=== PATIENT | male | born 1950 | race Caucasian/White ===

== ENCOUNTER → 2016-08-02 | Outpatient (CLI) | payer OTHER ==
[~2016-08-02] MED LIST: ACET-1256 PO; ASPCH81X PO; ATOR-24 PO; CHOL1000 PO; CITA20TA4 PO; GLIP-197 PO; HYDR12.55 PO; LEVE100021 PO; LISI10TA PO; LSN/10125 PO; METF-384 PO; NVLGI/PEN SQ; OXYC1TAB3 PO; POLY335019 PO; SENN-65 PO; [UNRECOGNIZED DRUG - CODE] SQ
[2016-08-02 12:25] LABS: BLOOD UREA NITROGEN 19 mg/dl (7-18); BUN/CREATININE RATIO 15.6 (10-20); CALCIUM 8.9 mg/dl (8.5-10.1); CARBON DIOXIDE 26 mmol/L (21-32); CHLORIDE 108 mmol/L (98-107); ESTIMATED AVERAGE GLUCOSE 128 mg/dl; GLUCOSE 61 mg/dl (70-99); HA1C FLAG Normal (Normal); SODIUM 142 mmol/L (136-145)
== END | disposition home or self-care (01) ==
LOC: C.LABPVFM 08:16
PROVIDERS: ATTEND Nurse Practitioner Family
DX: E11.9 Type 2 diabetes mellitus without complications (principal)

== ENCOUNTER 2016-09-02 20:17 | Emergency (ER) | payer OTHER ==
[~2016-09-02] VITALS: Ht 167.6 cm; Wt 94.9 kg
[2016-09-02 20:20] VITALS: O2SAT 95; Ht 167.6 cm; Wt 94.9 kg
[2016-09-02 20:37] LABS: BASO % 0.5 %; BASO ABS # 0.04 K/uL (0-0.2); COMPLETE YES; EOS % 2.3 %; IG% 0.3 %; LYMPH % 23.4 %; LYMPH ABS # 2.06 K/uL (1.2-3.4); MEAN CELL VOLUME 88.8 fL (80-100); MEAN PLATELET VOLUME 10.7 fL (7.4-10.4); MONO % 8.9 %; NEUT % 64.6 %; PLATELET COUNT 167 K/uL (130-400); RED BLOOD COUNT 5.07 M/uL (4.7-6.1)
[2016-09-02 20:41] LABS: ISTAT CREATININE 1.1 mg/dl (0.6-1.3); ISTAT HEMOGLOBIN 15.6 g/dl (14.0-18.0); ISTAT IONIZED CALCIUM 1.18 mmol/l (1.12-1.32)
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
[2016-09-02 20:47] LABS: PARTIAL THROMBOPLASTIN RATIO 0.9; PROTHROMBIN TIME (PATIENT) 10.2 SECONDS (9.0-12.0)
[2016-09-02 20:49] LABS: ALT/SGPT 28 U/L (12-78); AST/SGOT 14 U/L (15-37); BLOOD UREA NITROGEN 19 mg/dl (7-18); BUN/CREATININE RATIO 14.9 (10-20); CALCIUM 9.4 mg/dl (8.5-10.1); CARBON DIOXIDE 28 mmol/L (21-32); CHLORIDE 105 mmol/L (98-107); GLUCOSE 212 mg/dl (70-99); POTASSIUM 3.8 mmol/L (3.5-5.1); SODIUM 141 mmol/L (136-145)
--- NOTE | 2016-09-02 20:49 | DIAGNOSTIC IMAGING REPORT ---
CT SCAN OF THE BRAIN WITHOUT IV CONTRAST CLINICAL HISTORY: Trauma. COMPARISON STUDY: No priors. TECHNIQUE: Unenhanced axial CT scan of the brain is performed from the vertex to the skull base. CT DOSE: 1092.68 mGy.cm FINDINGS: Brain parenchyma: There is a trace subdural hematoma along the right convexity and the anterior falx. This measures up to 5 mm in thickness, and there is minimal effacement of subjacent cortical sulci. There are age-related involutional changes noting minimal subcortical and periventricular microangiopathic change. There is no parenchymal hematoma, midline shift, or evidence of acute territorial ischemia by CT criteria. Plummer-white matter is preserved. No extra-axial fluid collection is seen. Ventricles, sulci, cisterns: Prominent secondary to involutional change. There are foci of intraventricular gas identified, as well as gas within the basilar cisterns. Intracranial vasculature: There is atherosclerotic calcification of the cavernous carotid arteries. Calvarium: No depressed calvarial fracture is identified. Soft tissues: There is a large left frontoparietal scalp hematoma. Foci of subcutaneous gas are consistent with laceration. Sinuses and mastoids: The visualized paranasal sinuses are clear. There is a trace right mastoid effusion. The left mastoid air cells are well pneumatized. Orbits: The bony orbits are grossly intact. IMPRESSION: 1. There is a small subdural hematoma along the right convexity and the anterior falx. This causes only minimal mass effect on the subjacent sulci. 2. No additional foci of hemorrhage are identified. There is no midline shift or evidence of acute territorial ischemia by CT criteria. 3. Large left frontoparietal scalp hematoma and laceration. No depressed calvarial fracture is seen. 4. There are nonspecific foci of gas within the ventricles and basilar cisterns. Clinical correlation will be required. Electronically signed by: Efrain Way M.D. 09/02/2016 8:46 PM Dictated Date/Time: 09/02/2016 8:40 PM
[2016-09-02 20:53] LABS: ALB/GLOB RATIO 1.2 (0.9-2); ALKALINE PHOSPHATASE 101 U/L (45-117)
[2016-09-02] MEDS ORDERED: OPTIRAY 320 IV PRN (21:00)
--- NOTE | 2016-09-02 21:13 | DIAGNOSTIC IMAGING REPORT ---
CT SCAN OF THE CERVICAL SPINE CLINICAL HISTORY: Trauma. COMPARISON STUDY: No priors. TECHNIQUE: CT scan of the cervical spine is performed from the skull base to the upper thoracic spine. Images are reviewed in the axial, sagittal, and coronal planes. IV contrast was not administered for this examination. CT DOSE: Reported separately under the concurrently performed CT scan of the brain. FINDINGS: Skeletal structures: The skeletal structures are well mineralized. There is no evidence of fracture or subluxation involving the cervical spine. Vertebral body height and alignment are maintained. There is partial bony fusion of C2 and C3, including the posterior elements. The odontoid process and lateral masses are intact. The atlantoaxial articulation is preserved noting productive degenerative change. The spinous processes appear intact. There is mild multilevel cervical spondylosis. Uncovertebral and facet arthropathy are noted at most levels. There is chronic posttraumatic deformity of the right clavicle. Intervertebral discs: There is mild degenerative disc space narrowing seen at C5-C6. The remaining disc spaces appear maintained. Central canal: A small posterior disc osteophyte complex at C5-C6 likely contribute to mild acquired compromise of the central canal. There are foci of gas within the central spinal canal. There is hyperdense material present surrounding central canal both anteriorly and posteriorly seen from C2 through C4. The appearance is concerning for epidural hemorrhage. Soft tissues: The prevertebral and paraspinous soft tissues are within normal limits. There is a 10 mm low attenuation nodule in the right thyroid lobe. Subcutaneous gas is present in the left upper neck below the mastoid air cells. There is soft tissue injury and laceration seen in the left neck. A calcified sialolith is present in the left parotid gland. Calvarium: The visualized calvarium at the skull base appears intact. Brain parenchyma: Partially visualized brain parenchyma the skull base is within normal limits. Sinuses and mastoids: The visualized paranasal sinuses are clear. There is a trace right mastoid effusion. The left mastoid air cells are well pneumatized. Lung apices: Clear as visualized. IMPRESSION: 1. There is no evidence of fracture or subluxation involving the cervical spine. 2. There is hyperdense material identified surrounding the central spinal canal in the upper cervical region. The appearance is concerning for epidural hematoma. Consider MRI of the cervical spine for further assessment. 3. There are indeterminant foci of gas within the central spinal canal. This is indeterminant etiology. 4. Soft tissue injury and subcutaneous gas is noted within the left neck. Findings were discussed with Dr. Jha in the emergency department at the time of interpretation. Electronically signed by: Efrain Way M.D. 09/02/2016 9:11 PM Dictated Date/Time: 09/02/2016 8:54 PM
--- NOTE | 2016-09-02 21:21 | DIAGNOSTIC IMAGING REPORT ---
CT SCAN OF THE CHEST, ABDOMEN, AND PELVIS WITH IV CONTRAST CLINICAL HISTORY: Trauma. COMPARISON STUDY: No priors. TECHNIQUE: Following the IV administration of 115 of Optiray 320, CT scan of the chest, abdomen, and pelvis was performed from the thoracic inlet to the proximal femora. Images are reviewed in the axial, sagittal, and coronal planes. IV contrast was administered without complication. Automated dose control exposure was utilized. CT DOSE: 851.78 mGy.cm (accession [id number]), 0.00 mGy.cm (accession [id number]) FINDINGS: CHEST: Thyroid: Imaged portions of the thyroid gland are normal in size and attenuation. A 10 mm low-attenuation nodule is seen in the right lobe. Thoracic aorta: The thoracic aorta is normal in caliber and demonstrates standard 3-vessel arch anatomy. No dissection is seen. Pulmonary vasculature: The pulmonary trunk is normal in caliber. There are no filling defects identified in the central pulmonary vessels to indicate pulmonary was. Note that this examination was not protocoled for evaluation of the pulmonary arteries. Heart: The heart is mildly enlarged and without pericardial effusion. There are coronary artery calcifications. Lungs and pleural spaces: Evaluation of the lung parenchyma is degraded by respiratory motion artifact. There is no airspace consolidation or pleural effusion. Dependent atelectasis is observed. There is no pneumothorax. The trachea and central airways are patent. Mediastinum: There is no mediastinal hematoma or lymphadenopathy. Candice: Clear. Axillae: There is no axillary lymphadenopathy. Bony thorax: There is chronic posttraumatic deformity of the right clavicle. The bony thorax is otherwise intact. Mild degenerative changes noted throughout the thoracic spine and in the shoulders. No lytic or blastic lesions are identified. ABDOMEN AND PELVIS: Liver: The contrast-enhanced liver is enlarged, measuring 21.2 cm in length. There is no intrahepatic or ductal dilatation. The hepatic veins and portal veins are patent. Gallbladder: Unremarkable. Spleen: The spleen is mildly enlarged measuring 15.3 cm in length. Pancreas: Unremarkable. Adrenal glands: Unremarkable. Kidneys: The contrast enhanced kidneys are normal in size and without hydronephrosis. The kidneys enhance symmetrically. Bilateral renal cysts measure up to 4.7 cm. Additional subcentimeter cortical hypodensities also likely resent cysts but are too small for definitive characterization. There are nonobstructing left renal calculi measuring up to 4 mm. Abdominal vasculature: The abdominal aorta is normal in course and caliber noting mild atherosclerotic calcification. Stomach and bowel: There is a tiny hiatal hernia. The stomach and duodenum otherwise normal in configuration. The small bowel and colon are normal in course and caliber. There is mild colonic diverticulosis without CT evidence of acute diverticulitis. The appendix is well-visualized and normal. Peritoneum: There is no intraperitoneal free air or abdominal ascites. Lymphadenopathy: None. Pelvic viscera: The bladder, prostate, and seminal vesicles are normal as visualized. Skeletal structures: The lumbosacral spine and bony pelvis appear intact. No lytic or blastic lesions are seen. Sclerotic change is noted in the pubic symphysis. IMPRESSION: 1. There is no acute posttraumatic intrathoracic abnormality. 2. There is no airspace consolidation, pleural effusion, or pneumothorax. 3. Mild cardiac enlargement. 4. There is no evidence of solid organ injury in the abdomen or pelvis. 5. Mild splenomegaly. 6. Hepatomegaly and hepatic steatosis. 7. No acute fracture is seen. 8. Nonobstructing left renal calculi. 9. Mild colonic diverticulosis without CT evidence of acute diverticulitis. 10. Additional findings as above. Electronically signed by: Efrain Way M.D. 09/02/2016 9:20 PM Dictated Date/Time: 09/02/2016 9:02 PM
--- NOTE | 2016-09-02 21:35 | DIAGNOSTIC IMAGING REPORT ---
SINGLE VIEW RIGHT SHOULDER CLINICAL HISTORY: Trauma. FINDINGS: An AP, portable, supine view of the right shoulder is obtained. No prior studies are available for comparison at the time of dictation. The skeletal structures appear well mineralized. There is no radiographic evidence of fracture on this single view. Chronic posttraumatic deformity is seen in the right clavicle. Productive degenerative change is noted at the acromioclavicular joint. The glenohumeral articulation appears preserved. Arthritic change is noted in the greater tuberosity of the humeral head. Soft tissue edema is present in the right upper extremity. A radiodense foreign body projects medial to the mid humeral shaft. Right lung parenchyma is clear as imaged. IMPRESSION: 1. No acute fracture or dislocation is seen in the right shoulder on this single image. 2. Soft tissue edema is noted in the right upper extremity. 3. A radiodense foreign body projects medial to the mid humeral shaft. Electronically signed by: Efrain Way M.D. 09/02/2016 9:34 PM Dictated Date/Time: 09/02/2016 9:32 PM
[2016-09-02] MEDS ORDERED: METF-384 PO (21:54)
[2016-09-02] MEDS ORDERED: ASPCH81X PO (21:54)
[2016-09-02] MEDS ORDERED: GLIP-197 PO (21:54)
[2016-09-02] MEDS ORDERED: CHOL1000 PO (21:54)
[2016-09-02] MEDS ORDERED: LSN/10125 PO (21:54)
[2016-09-02] MEDS ORDERED: CITA20TA4 PO (21:54)
[2016-09-02] MEDS ORDERED: ATOR-24 PO (21:54)
[2016-09-02] MEDS ORDERED: NURSING VERBAL MED ORDER ONE (22:15)
[2016-09-02] MEDS ORDERED: LACTATED RINGER'S 1000ML 1,000 ML IV SCH (22:45)
[2016-09-02] MEDS ORDERED: DIPHTHERIA/TETANUS/PERTUSSIS 0.5 ML SYR/VIAL IM. ONE (22:45)
[2016-09-02 23:31] VITALS: BP 147/102; PULSE 72; TEMP 36.4; O2SAT 96
== END 2016-09-02 23:25 | disposition short-term general hospital (02) ==
LOC: EDBD 20:17 → C.ED 20:21
DX: S06.9X0A Unspecified intracranial injury without loss of consciousness, initial encounter (principal); S00.83XA Contusion of other part of head, initial encounter; S01.112A Laceration without foreign body of left eyelid and periocular area, initial encounter; S01.01XA Laceration without foreign body of scalp, initial encounter; S19.9XXA Unspecified injury of neck, initial encounter; S61.212A Laceration without foreign body of right middle finger without damage to nail, initial encounter; S01.312A Laceration without foreign body of left ear, initial encounter; S40.211A Abrasion of right shoulder, initial encounter; M95.11 Cauliflower ear, right ear; R41.0 Disorientation, unspecified; R20.0 Anesthesia of skin; W22.8XXA Striking against or struck by other objects, initial encounter; Z23 Encounter for immunization; Z79.82 Long term (current) use of aspirin

== ENCOUNTER 2016-10-12 09:10 | Emergency (ER) | payer OTHER ==
[~2016-10-12] VITALS: Ht 167.6 cm; Wt 85.2 kg
[~2016-10-12 09:10] MED LIST changes: -ACET-1256 PO; -HYDR12.55 PO; -LEVE100021 PO; -LISI10TA PO; -NVLGI/PEN SQ; -OXYC1TAB3 PO; -POLY335019 PO; -SENN-65 PO; -[UNRECOGNIZED DRUG - CODE] SQ
[2016-10-12] MEDS ORDERED: SODIUM CHLORIDE 0.9% 1000ML 1,000 ML IV SCH (09:18)
[2016-10-12 09:26] VITALS: TEMP 36.6; Ht 167.6 cm; Wt 85.2 kg
[2016-10-12 09:38] LABS: BASO ABS # 0.07 K/uL (0-0.2); COMPLETE YES; EOS % 1.4 %; HEMATOCRIT 31.7 % (42-52); IG% 0.4 %; LYMPH % 18.7 %; LYMPH ABS # 1.35 K/uL (1.2-3.4); MEAN CELL VOLUME 87.8 fL (80-100); MEAN CORPUSCULAR HEMOGLOBIN 28.3 pg (25-34); MEAN CORPUSCULAR HGB CONC 32.2 g/dl (32-36); MEAN PLATELET VOLUME 9.3 fL (7.4-10.4); MONO % 9.5 %; PLATELET COUNT 350 K/uL (130-400); RED BLOOD COUNT 3.61 M/uL (4.7-6.1); WHITE BLOOD COUNT 7.23 K/uL (4.8-10.8)
[2016-10-12 09:39] VITALS: O2SAT 98
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
[2016-10-12 09:53] LABS: PROTHROMBIN TIME (PATIENT) 10.8 SECONDS (9.0-12.0)
[2016-10-12 09:54] LABS: BLOOD UREA NITROGEN 20 mg/dl (7-18); BUN/CREATININE RATIO 18.4 (10-20); CALCIUM 8.9 mg/dl (8.5-10.1); CARBON DIOXIDE 31 mmol/L (21-32); CHLORIDE 102 mmol/L (98-107); GLUCOSE 143 mg/dl (70-99); POTASSIUM 3.8 mmol/L (3.5-5.1); SODIUM 139 mmol/L (136-145)
--- NOTE | 2016-10-12 09:58 | DIAGNOSTIC IMAGING REPORT ---
CT OF THE HEAD WITHOUT CONTRAST CLINICAL HISTORY: Stroke symptoms. Recent surgery for subdural hematoma. COMPARISON STUDY: Head CT September 02, 2016. CT DOSE: 537.48 mGy.cm TECHNIQUE: Helical axial images of the head were obtained without IV contrast. Automated exposure control was utilized for the study. FINDINGS: The patient is status post interval right-sided craniotomy since CT of September 02, 2016. Scalp erika are in place. Pneumocephalus is noted with gas within the operative bed. There is a small mixed attenuation extraaxial collection within the right frontotemporal operative bed that measures 9 mm in thickness. There is trace acute subdural blood along the posterior falx. Note is made of hypodensity within the anterior right frontal lobe as well as hypodensity which extends into the right temporal lobe. There is central increased attenuation. There may be small foci of hemorrhage within the anterior right frontal lobe. Mass effect is noted with compression of the right lateral ventricle and 9 mm of leftward midline shift. There is no evidence of uncal herniation. There is no significant subfalcine herniation at this time. There is no calvarial fracture. Visualized portions of the sinuses and mastoid air cells are clear. IMPRESSION: 1. Interval right sided craniotomy. Small mixed attenuation extra-axial operative bed fluid collection measures 9 mm in thickness. Associated soft tissue gas is likely postsurgical. However, this could be correlated with timing of surgery to exclude the less likely possibility of an infectious process. 2. Extensive right frontotemporal hypodensity with areas of increased attenuation within this suspected area of edema which could reflect small foci of parenchymal hemorrhage. This edema is nonspecific and could reflect an evolving infarct (possibly venous), postsurgical change or parenchymal contusion. Moderate associated mass effect with sulcal effacement, compression of the right lateral ventricle and 9 mm of leftward midline shift. Comparison with recent postoperative CT if available, would be of benefit. An MRI or short-term follow-up CT is recommended. Discussed with Dr. Jha at time of dictation. 3. Trace acute subdural blood along the falx. Electronically signed by: Moises Lopes M.D. 10/12/2016 9:57 AM Dictated Date/Time: 10/12/2016 9:26 AM
[2016-10-12] MEDS ORDERED: SENN-65 PO (10:40)
[2016-10-12] MEDS ORDERED: LEVE100021 PO (10:40)
[2016-10-12] MEDS ORDERED: [UNRECOGNIZED DRUG - CODE] SQ (10:40)
[2016-10-12] MEDS ORDERED: NVLGI/PEN SQ (10:40)
[2016-10-12] MEDS ORDERED: POLY335019 PO (10:40)
[2016-10-12] MEDS ORDERED: LISI10TA PO (10:40)
[2016-10-12] MEDS ORDERED: HYDR12.55 PO (10:40)
[2016-10-12] MEDS ORDERED: OXYC1TAB3 PO (10:41)
[2016-10-12] MEDS ORDERED: ACET-1256 PO (10:41)
[2016-10-12 10:45] VITALS: PULSE 58; O2SAT 99
[2016-10-12 11:02] VITALS: BP 97/51
== END 2016-10-12 11:33 | disposition short-term general hospital (02) ==
LOC: C.ED 09:10 → EDBD 09:10 → C.ED 11:33
DX: S06.1X0A Traumatic cerebral edema without loss of consciousness, initial encounter (principal); X58.XXXA Exposure to other specified factors, initial encounter; F17.200 Nicotine dependence, unspecified, uncomplicated; Z79.01 Long term (current) use of anticoagulants; Z79.4 Long term (current) use of insulin

== ENCOUNTER → 2017-01-08 | Outpatient (CLI) | payer OTHER ==
[~2017-01-08] MED LIST changes: +ACET-1256 PO; -ASPCH81X PO; -GLIP-197 PO; +HYDR12.55 PO; +LEVE100021 PO; +LISI10TA PO; -LSN/10125 PO; -METF-384 PO; +NVLGI/PEN SQ; +OXYC1TAB3 PO; +POLY335019 PO; +SENN-65 PO; +[UNRECOGNIZED DRUG - CODE] SQ
[2017-01-08 13:01] LABS: BASO % 0.7 %; BASO ABS # 0.06 K/uL (0-0.2); COMPLETE YES; EOS % 1.7 %; HEMATOCRIT 42.2 % (42-52); IG% 0.5 %; LYMPH % 20.6 %; LYMPH ABS # 1.72 K/uL (1.2-3.4); MEAN CELL VOLUME 82.9 fL (80-100); MEAN CORPUSCULAR HEMOGLOBIN 26.9 pg (25-34); MEAN CORPUSCULAR HGB CONC 32.5 g/dl (32-36); MEAN PLATELET VOLUME 10.7 fL (7.4-10.4); MONO % 7.6 %; NEUT % 68.9 %; PLATELET COUNT 194 K/uL (130-400); RED BLOOD COUNT 5.09 M/uL (4.7-6.1); WHITE BLOOD COUNT 8.33 K/uL (4.8-10.8)
[2017-01-08 13:12] LABS: ESTIMATED AVERAGE GLUCOSE 166 mg/dl; HA1C FLAG Normal (Normal)
[2017-01-08 13:46] LABS: ALT/SGPT 33 U/L (12-78); BLOOD UREA NITROGEN 21 mg/dl (7-18); BUN/CREATININE RATIO 20.6 (10-20); CALCIUM 9.4 mg/dl (8.5-10.1); CARBON DIOXIDE 25 mmol/L (21-32); CHLORIDE 107 mmol/L (98-107); CHOLESTEROL 136 mg/dl (0-200); GLUCOSE 155 mg/dl (70-99); POTASSIUM 4.4 mmol/L (3.5-5.1); SODIUM 139 mmol/L (136-145); TRIGLYCERIDES 377 mg/dl (0-150); VERY LOW DENSITY LIPOPROT CALC 75 mg/dl
[2017-01-08 13:58] LABS: ALKALINE PHOSPHATASE 125 U/L (45-117); AST/SGOT 14 U/L (15-37); HDL CHOLESTEROL 27 mg/dl; LDL CHOLESTEROL CALCULATED 34 mg/dl
== END | disposition home or self-care (01) ==
LOC: C.LABPVFM 08:30
PROVIDERS: ATTEND Nurse Practitioner Family
DX: E78.5 Hyperlipidemia, unspecified (principal); I10 Essential (primary) hypertension; E11.9 Type 2 diabetes mellitus without complications; E55.9 Vitamin D deficiency, unspecified

== ENCOUNTER → 2017-05-15 | Outpatient (CLI) | payer OTHER | END | disposition home or self-care (01) | LOC: C.LABPVFM 10:40 | PROVIDERS: ATTEND Nurse Practitioner Family | DX: Z79.899 Other long term (current) drug therapy (principal) ==

== ENCOUNTER → 2017-07-09 | Outpatient (CLI) | payer OTHER ==
[2017-07-09 12:56] LABS: HEMOGLOBIN A1C 6.9 % (4.5-5.6)
[2017-07-09 13:07] LABS: ALBUMIN 3.7 gm/dl (3.4-5.0); ALT/SGPT 35 U/L (12-78); BLOOD UREA NITROGEN 21 mg/dl (7-18); CALCIUM 9.8 mg/dl (8.5-10.1); CARBON DIOXIDE 27 mmol/L (21-32); CHOLESTEROL 109 mg/dl (0-200); CREATININE 1.06 mg/dl (0.60-1.40); GLUCOSE 142 mg/dl (70-99); POTASSIUM 4.3 mmol/L (3.5-5.1); SODIUM 137 mmol/L (136-145)
[2017-07-09 13:10] LABS: ALKALINE PHOSPHATASE 110 U/L (45-117); AST/SGOT 12 U/L (15-37); LDL CHOLESTEROL CALCULATED 14 mg/dl
== END | disposition home or self-care (01) ==
LOC: C.LABPVFM 08:15
PROVIDERS: ATTEND Nurse Practitioner Family
DX: E78.5 Hyperlipidemia, unspecified (principal); I10 Essential (primary) hypertension; E11.9 Type 2 diabetes mellitus without complications; E55.9 Vitamin D deficiency, unspecified